=== PATIENT | male | born 2000 | race Caucasian/White ===

== ENCOUNTER 2024-08-05 07:08 | Emergency (ER) | payer OTHER, SELFPAY ==
[2024-08-05 07:10] VITALS: BP 143/93
[2024-08-05 07:31] LABS: % Basophils 0.1 % (0-2); % Eosinophils 1.4 % (0-6); % Immature Granulocytes 0.3 % (0-0.5); % Lymphocytes 9.7 % (20.5-51.1); % Monocytes 9.7 % (1.7-9.3); % Neutrophils 78.8 % (42.2-75.2); Absolute Eosinophils 0.1 10^3/uL (0-0.7); Absolute Lymphocytes 0.9 10^3/uL (1.2-3.4); Absolute Monocytes 0.9 10^3/uL (0.1-0.6); Absolute Neutrophils 7.2 10^3/uL (1.4-6.5); Hematocrit 38.7 % (39.0-52.0); Hemoglobin 13.3 g/dL (13.0-18.0); Mean Corp Hgb Conc. 34.4 g/dL (33.0-37.0); Mean Corpuscular Hgb 29.2 pg (27.0-31.0); Mean Corpuscular Volume 84.9 fL (80.0-94.0); Mean Platelet Volume 9.8 fL (7.4-10.4); Nucleated Red Blood Cells % 0 % (-); Platelet Count 199 10^3/uL (130-400); Red Blood Cell Count 4.56 10^6/uL (4.70-6.10); Red Cell Dist. Width 11.9 % (11.5-14.5); White Blood Cell Count 9.2 10^3/uL (4.8-10.8)
[2024-08-05 07:46] LABS: ALT (SGPT) 23 U/L (0-50); AST (SGOT) 25 U/L (17-59); Albumin 4.7 g/dl (3.5-5.0); Alkaline Phosphatase 40 U/L (38-126); Blood Urea Nitrogen 19 mg/dl (9-20); Calcium 9.5 mg/dl (8.4-10.2); Carbon Dioxide 26 mmol/L (22-30); Chloride 101 mmol/L (98-107); Glucose 96 mg/dl (70-99); Potassium 3.7 mmol/L (3.5-5.1); Sodium 139 mmol/L (135-145); Total Bilirubin 3.5 mg/dl (0.2-1.3); Total Protein 7.1 g/dl (6.3-8.2); eGFR > 60.00
[2024-08-05 08:45] VITALS: BP 122/74
--- NOTE | 2024-08-05 08:50 | ED.GENMED ---
History of Present Illness
General
Chief Complaint: Flank Pain
Source: patient
Exam Limitations: none
Time Seen by Provider: 08/05/24 07:48
Nursing documentation reviewed up to this point in time: agreed with
History of Present Illness
History of Present Illness:
Patient is a 23-year-old male with past medical history of autism brought by mom for evaluation of right flank pain. Patient has had right flank pain off and on for the past several days. When it first started night he did vomit pain.
Mom reports it comes in waves and intensity. Seems to worsen at night. He has no prior history of a kidney stone. They deny any blood in urine. No vomiting since . No injury.
Review of Systems
Review of Systems
Allergies reviewed?: Yes
All Other Systems: ROS reviewed and negative except as documented in HPI and ROS
Constitutional: Reports no symptoms; Denies fever, fatigue or chills
Respiratory: Reports no symptoms
Cardiac: Reports no symptoms
ABD/GI: Reports abdominal pain and other (+ n/v several nights ago )
: Reports flank pain
Musculoskeletal: Reports no symptoms
Skin: Reports no symptoms
Neurological: Reports no symptoms
Psychiatric: Reports no symptoms
Phy Exam
General Physical Exam
General Presentation: no apparent distress
General age: appears stated age
General Skin: warm and dry
General Habitus: normal
General Mental: alert
General Hydration: appears well hydrated
Neurological Exam
Neurological Exam: alert and oriented x3
Musculoskeletal Exam
Musculoskeletal Exam: full ROM
Skin Exam
Skin Exam: normal color and warm/dry
Psychiatric Exam
Psychiatric Exam: normal mood/affect
Course
Orders/Labs/Results
Orders:
Orders
08/05/24 07:19
CMP [Comprehensive Metabolic Panel] Urgent
Complete Blood Count/With Diff Urgent
08/05/24 08:57
Urinalysis Reflex To Culture Urgent
Date Specimen was Collected: 08/05/24
Time Specimen was Collected: 08:54
Urine Microscopic Reflex Cult Urgent
Urine Culture Urgent
ERIN Source: U
Specimen Description:
Date Specimen was Collected: 08/05/24
Time Specimen was Collected: 08:54
08/05/24 08:58
CT Abd/pel Without Iv Or Oral Urgent
Comment:
Reason For Exam: right flank pain
08/05/24 10:25
Tamsulosin [Flomax] 0.4 mg PO NOW STA
08/05/24 10:26
Cefdinir [Omnicef] 300 mg PO NOW STA
Abnormal Lab Results
08/05/24 08/05/24
07:19 08:57
RBC 4.56 L 10^6/uL
(4.70-6.10)
Hct 38.7 L %
(39.0-52.0)
Absolute Neuts (auto) 7.2 H 10^3/uL
(1.4-6.5)
Absolute Lymphs (auto) 0.9 L 10^3/uL
(1.2-3.4)
Absolute Monos (auto) 0.9 H 10^3/uL
(0.1-0.6)
Neutrophils % 78.8 H %
(42.2-75.2)
Lymphocytes % 9.7 L %
(20.5-51.1)
Monocytes % 9.7 H %
(1.7-9.3)
Total Bilirubin 3.5 H mg/dl
(0.2-1.3)
Urine Ketones 2+ A
(Negative)
Ur Occult Blood Reflex 4+ A
(Negative)
Leukocyte Esterase Rfl 1+ A
(Negative)
Urine RBC 3-6 A /HPF
(0-2)
Urine WBC (Reflex) 16-20 A /HPF
(0-5)
Urine Bacteria (Reflex) Few A
(Negative)
08/05/24 07:19
08/05/24 07:19
Vital Signs
Initial and Last Documented VS:
Initial Vital Signs
Temp Pulse Resp BP Pulse Ox
97.9 F 84 16 143/93 100
08/05/24 07:10 08/05/24 07:10 08/05/24 07:10 08/05/24 07:10 08/05/24 07:10
Last Documented Vital Signs
Temp Pulse Resp BP Pulse Ox
97.9 F 74 18 122/74 99
08/05/24 07:10 08/05/24 08:45 08/05/24 08:45 08/05/24 08:45 08/05/24 08:45
Director Of Collections And Archives consulted with Physician
Director Of Collections And Archives consulted with physician?: Yes (Thanh )
MDM/Problems Addressed
Differential Diagnosis Includes:
Not limited to renal colic less likely UTI/pyelonephritis
MDM/Problems Addressed:
Patient is a 23-year-old male with past medical history of autism brought by mom for evaluation of intermittent flank pain for the past several days. Patient did vomit when symptoms started several days ago but has not vomited since. No difficulty
urinating abdomen soft nontender. Currently at this time he is no pain. He reports pain comes in waves. CAT scan does show 4 mm obstructing stone within the mid right ureter with associated mild right-sided hydro. Patient has been asymptomatic
labs reviewed normal white count normal renal function patient has an elevated isolated bilirubin will have patient follow-up with family doctor for this. However does show 16�20 white blood cells and therefore antibiotic was started. Case
reviewed ED physician will DC with urology follow-up.
*Radiology
Radiology exam reviewed: radiology read reviewed
*Pulse Oximetry
Patient hypoxic: no
*Critical Care Note
Total Time (30-74mins, 75-104mins- exclusive of procedures): Not Applicable
ED Attending Note
-
Portions of this chart may have been created with voice recognition software.� Occasional wrong word or��sound alike� substitutions may have occurred due to the inherent limitations of voice recognition software.
Discharge Plan
Departure
Patient Disposition: Home (Routine Discharge)
Date of Disposition: 08/05/24
Time of Disposition: 10:27
Patient with high blood pressure during this ER visit?: Yes
Condition: Fair
Covid-19: Not Applicable
Discharge Problem:
renal colic
Instructions: Renal Colic (DC), How to Strain Your Urine, BLOOD PRESSURE
Prescriptions:
New
cefdinir 300 mg capsule
300 mg PO BID Qty: 14 0RF
tamsulosin [Flomax] 0.4 mg capsule
0.4 mg PO DAILY Qty: 7 0RF
Activity Restrictions/Additional Instructions:
Increase fluid intake. Patient should take Flomax once daily for the next 7 days along with antibiotic twice daily for the next 7 days. Patient was given Flomax already here in the ER and once dose of Cefdinir. These medications were sent to
pharmacy
Strain all urine.
Follow-up with urology in the next several days for reevaluation.
return if any worsening of symptoms if increased pain nausea vomiting fever chills.
Incidentally patient has an isolated elevated bilirubin it is possible that this is likely chronic however this will need to be rechecked by family doctor.
Interventions
Interventions:
*Risk Screen - Suicide Last Done: 08/05/24 07:10
*General Assessment Last Done: 08/05/24 07:10
*Neglect/Abuse Screening Last Done: 08/05/24 09:00
*ED COVID-19 Vaccine History Last Done: 08/05/24 07:10
IQ-Gopklf-Trazpoueyh Assessment Last Done: 08/05/24 09:00
ED-Male Genitourinary Assessment Last Done: 08/05/24 09:00
Discharge Date and Time
Print Language: MONTENEGRIN
[2024-08-05 08:54] VITALS: BMI 22.1
[2024-08-05 09:03] LABS: Urine Albumin Trace (Neg - Trace); Urine Bilirubin Negative (Negative); Urine Character Clear (Clear); Urine Color Yellow; Urine Glucose Negative (Negative); Urine Ketone 2+ (Negative); Urine Leukocyte 1+ (Negative); Urine Nitrite Negative (Negative); Urine Occult Blood 4+ (Negative); Urine Specific Gravity 1.015 (<1.030); Urine Urobilinogen Negative (Neg - 1+)
[2024-08-05 09:18] LABS: Urine Bacteria Few (Negative); Urine White Cell 16-20 /HPF (0-5)
[2024-08-05 09:20] LABS: Urine Mucus Moderate
[2024-08-05] MEDS: OMNICEF 300 MG PO (10:40)
[2024-08-05] MEDS: FLOMAX 0.4 MG PO (10:40)
[2024-08-05 10:51] VITALS: BP 120/67
== END 2024-08-05 10:58 | disposition home or self-care (01) ==
LOC: EMR 07:08
PROVIDERS: Emergency Medicine; Physician Assistant; EMERGENCY PHYSICIAN Emergency Medicine; FAMILY PHYSICIAN Physician Assistant
DX: N13.2 Hydronephrosis with renal and ureteral calculous obstruction (principal); R17 Unspecified jaundice; F84.0 Autistic disorder
CPT/HCPCS: 99284; 74176; 80053; 81003; 81015; 85025; 87086

== ENCOUNTER → 2024-08-26 12:54 | Outpatient (REF) | payer OTHER, SELFPAY | LOC: HWRAD 12:54 | PROVIDERS: ATTENDING PHYSICIAN Specialist; FAMILY PHYSICIAN Physician Assistant | DX: N20.0 Calculus of kidney (principal) | CPT/HCPCS: 74018 ==